=== PATIENT | female | born 2000 | race Caucasian/White ===

== ENCOUNTER 2022-04-16 11:51 | Emergency (ER) | payer BC ==
[~2022-04-16] VITALS: Ht 142.2 cm; Wt 44.5 kg
[2022-04-16] MEDS ORDERED: PROLATE PO (15:02)
[2022-04-16] MEDS ORDERED: OXYCODONE H5 MG/5 ML PO (16:46)
== END 2022-04-16 15:05 | disposition home or self-care (01) ==
LOC: ED 11:51
DX: S42.401A Unspecified fracture of lower end of right humerus, initial encounter for closed fracture (principal); W18.39XA Other fall on same level, initial encounter; Y93.89 Activity, other specified; Y92.89 Other specified places as the place of occurrence of the external cause; Y99.8 Other external cause status